=== PATIENT | male | born 1970 | race Caucasian/White ===

== ENCOUNTER 2016-12-16 12:32 | Emergency (ER) | payer OTHER ==
[2016-12-16 13:00] VITALS: BP 130/81
--- NOTE | 2016-12-16 14:59 | UC ---
Respiratory Complaint HPI - HPI Summary HPI Summary: About 9 days ago had "common cold" -- runny nose, ST, congestion, minor cough. Sx seemed to be improving significantly until 2 days ago when pt had markedly worsening cough with constant tickle in his chest. Starting early this morning ( 4 or 5 am) had chills and again late morning until he took a hot shower. Now is very exhausted and having trouble moving around. - History of Current Complaint Chief Complaint: UCRespiratory Stated Complaint: COUGH & TICKLE-CHEST Time Seen by Provider: 12/16/16 14:40 Hx Obtained From: Patient Onset/Duration: Gradual Onset, Lasting Days Timing: Constant Severity Initially: Mild Severity Currently: Moderate Character: Cough: Nonproductive Aggravating Factors: Exertion, Deep Breaths Alleviating Factors: Upright Position Associated Signs And Symptoms: Positive: Chills, Nasal Congestion - Risk Factors Pulmonary Embolism Risk Factors: Negative - Allergies/Home Medications Allergies/Adverse Reactions: Allergies Allergy/AdvReac Type Severity Reaction Status Date / Time Fish Allergy AdvReac Intermediate Vomiting Verified 02/17/16 14:27 and diarrhea ENVIRONMENTAL/SEASONAL Allergy Unknown Uncoded 02/17/16 14:27 HAYFEVER Reaction Details PMH/Surg Hx/FS Hx/Imm Hx Endocrine History Of: Denies: Diabetes, Thyroid Disease Cardiovascular History Of: Reports: Hypertension Denies: Cardiac Disorders Respiratory History Of: Denies: COPD, Asthma - ASTHMA- POSSIBLE - NO MEDICAL DIAGNOSIS GI/ History Of: Reports: Gastroesophageal Reflux Denies: Ulcer Psychological History Of: Reports: Depression - HX OF - Surgical History Surgical History: Yes Surgery Procedure, Year, and Place: as a child multiple (left) eye surgeries with lens removed. bilateral ear surgeries as a child - legally blind left eye ; deviated seprum. wisdom teeth - Family History Known Family History: Positive: Hypertension Family History: NON CONTRIBUTORY - Social History Occupation: Employed Part-time Lives: Alone Alcohol Use: Rare Substance Use Type: Marijuana Substance Use Comment - Amount & Last Used: occasionally Smoking Status (MU): Never Smoked Tobacco Review of Systems Constitutional: Chills, Fatigue Skin: Negative Eyes: Negative ENT: Nasal Discharge - resolving Respiratory: Shortness Of Breath, Cough Cardiovascular: Negative Gastrointestinal: Negative Genitourinary: Negative Motor: Negative Neurovascular: Negative Musculoskeletal: Negative Neurological: Negative Psychological: Negative All Other Systems Reviewed And Are Negative: Yes Physical Exam Triage Information Reviewed: Yes Appearance: Well-Appearing, No Pain Distress, Well-Nourished Vital Signs: Initial Vital Signs Temp 98.4 F 12/16/16 12:57 Pulse 97 12/16/16 12:57 Resp 16 12/16/16 12:57 BP 130/81 12/16/16 12:57 Pulse Ox 98 12/16/16 12:57 Vital Signs Reviewed: Yes Eye Exam: Other - L eye postsurgical appearance Eyes: Positive: Conjunctiva Clear ENT: Positive: Normal ENT inspection, Hearing grossly normal, Pharynx normal, TMs normal Dental Exam: Normal Neck exam: Normal Neck: Positive: Supple, Nontender, No Lymphadenopathy Respiratory Exam: Other - frequent dry cough Respiratory: Positive: Chest non-tender, Lungs clear, Normal breath sounds, No respiratory distress, No accessory muscle use Cardiovascular Exam: Normal Cardiovascular: Positive: RRR, No Murmur Musculoskeletal Exam: Normal Neurological Exam: Normal Psychological Exam: Normal Skin Exam: Other - sweaty UC Diagnostic Evaluation - Laboratory O2 Sat by Pulse Oximetry: 98 Respiratory Course/Dx - Differential Dx/Diagnosis Provider Diagnoses: acute bronchitis. elevated blood pressure due to discomfort Discharge - Discharge Plan Condition: Stable Disposition: HOME Prescriptions: Albuterol HFA INHALER* [Ventolin HFA Inhaler*] 1 - 2 puff INH Q4H PRN #1 mdi PRN Reason: wheeze, cough Benzonatate CAP* [Tessalon CAP*] 100 mg PO TID PRN #30 cap PRN Reason: Cough Guaifenesin-Codeine [Guaiatussin AC] 5 - 10 ml PO BEDTIME #240 ml MDD 40mL predniSONE TAB* [Deltasone TAB*] 50 mg PO DAILY #4 tab Patient Education Materials: Acute Bronchitis (ED) Referrals: Georgiana Godinez MD [Primary Care Provider] - If Needed Additional Instructions: Call or return if you develop increasing fever, shortness of breath, chest pain , bloody sputum, or otherwise worsen. If you have not improved at all after several days, contact your primary care physician or return here.
--- NOTE | 2016-12-16 15:24 | RAD ---
INDICATION: Cough and chills for 9 days. COMPARISON: Comparison is made with a prior study from December 04, 2014. TECHNIQUE: Dual-energy PA and lateral views of the chest were obtained. FINDINGS: The heart is within normal limits in size. Mediastinal and hilar contours appear within normal limits. The lungs are clear. No pleural effusion is present. IMPRESSION: NO EVIDENCE FOR ACTIVE CARDIOPULMONARY DISEASE.
== END 2016-12-16 15:45 | disposition home or self-care (01) ==
LOC: UCEAST 12:32
DX: J20.9 Acute bronchitis, unspecified (principal); I10 Essential (primary) hypertension; K21.9 Gastro-esophageal reflux disease without esophagitis; F32.9 Major depressive disorder, single episode, unspecified
CPT/HCPCS: 71020; 87502; 99212; G0463

== ENCOUNTER 2017-05-24 21:37 | Inpatient (IN) | payer MEDICAID, OTHER ==
[2017-05-25 00:15] LABS: Hematocrit 45 % (42-52); Hemoglobin 15.3 g/dl (14.0-18.0); Mean Corpuscular HGB Conc 34 g/dl (31-36); Mean Corpuscular Hemoglobin 30 pg (27-31); Mean Corpuscular Volume 89 fL (80-94); Mean Platelet Volume 7 um3 (7.4-10.4); Red Blood Count 5.09 10^6/ul (4.0-5.4); Red Cell Distribution Width 13 % (10.5-15); White Blood Count 6.1 10^3/ul (3.5-10.8)
[2017-05-25 00:32] LABS: ALT 22 U/L (7-52); AST 20 U/L (13-39); Acetaminophen < 15 mcg/mL; Albumin 4.2 g/dL (3.2-5.2); Alcohol < 10 mg/dL (<10); Alkaline Phosphatase 78 U/L (34-104); Anion Gap 7 mmol/L (2-11); BUN/Creatinine Ratio 15.5 (8-20); Blood Urea Nitrogen 15 mg/dL (6-24); CO2 Carbon Dioxide 28 mmol/L (22-32); Calcium 9.2 mg/dL (8.6-10.3); Chloride 104 mmol/L (101-111); EGFR African American 106.7 (>60); Globulin 3.1 g/dL (2-4); Glucose 111 mg/dL (70-100); Potassium 3.8 mmol/L (3.5-5.0); Salicylate < 2.50 mg/dL (<30); Sodium 139 mmol/L (133-145); Total Protein 7.3 g/dL (6.4-8.9)
[2017-05-25 02:29] LABS: Urine Bilirubin Negative (Negative); Urine Glucose Negative (Negative); Urine Nitrite Negative (Negative)
[2017-05-25 02:43] LABS: Benzodiazepine Urine Screen None Detected (None Detect)
--- NOTE | 2017-05-25 04:57 | ED ---
Rishi Moore Rebecca, scribed for Harsh Reed MD on 05/24/17 at 2329 . Psychiatric Complaint - HPI Summary HPI Summary: Pt is a 46 y/o M [employer] who presents to ED for depression with SIs. Pt reports that his brother called the police today after be had expressed SIs. Upon triage, he reported to have anthony elizabeth sevilla though he did not state what it was. Pt states he has a PMHx of anxiety and depression, though neither have been diagnosed. - History Of Current Complaint Chief Complaint: EDMentalHealth Time Seen by Provider: 05/24/17 23:20 Hx Obtained From: Patient Onset/Duration: Still Present Character: Depressed Aggravating Factor(s): Nothing Alleviating Factor(s): Nothing Related History: Positive For: Prior Psychiatric Issues - Reports he's experineced anxiety and dpression without a diagnosis Has Suicidal: Reports: Thoughts - Allergies/Home Medications Allergies/Adverse Reactions: Allergies Allergy/AdvReac Type Severity Reaction Status Date / Time Fish Allergy AdvReac Intermediate Vomiting Verified 02/17/16 14:27 and diarrhea ENVIRONMENTAL/SEASONAL Allergy Unknown Uncoded 02/17/16 14:27 HAYFEVER Reaction Details PMH/Surg Hx/FS Hx/Imm Hx Endocrine/Hematology History: Denies: Hx Diabetes, Hx Thyroid Disease Cardiovascular History: Reports: Hx Hypercholesterolemia, Hx Hypertension, Other Cardiovascular Problems/Disorders Respiratory History: Reports: Hx Sleep Apnea, Other Respiratory Problems/ Disorders - SLEEP APNEA Denies: Hx Asthma - ASTHMA- POSSIBLE - NO MEDICAL DIAGNOSIS, Hx Chronic Obstructive Pulmonary Disease (COPD) GI History: Reports: Hx Gastroesophageal Reflux Disease - MILD ACID REFLUX Denies: Hx Ulcer Musculoskeletal History: Reports: Other Musculoskeletal History - chronic foot & ankle pain Sensory History: Reports: Hx Contacts or Glasses, Hx Hearing Aid - 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 bilateral ear surgeries as a child - legally blind left eye ; deviated seprum. wisdom teeth Hx Anesthesia Reactions: No Infectious Disease History: No Infectious Disease History: Denies: Hx Clostridium Difficile, Hx Hepatitis, Hx Human Immunodeficiency Virus (HIV), Hx of Known/Suspected MRSA, Hx Shingles, Hx Tuberculosis, Hx Known/ Suspected VRE, Hx Known/Suspected VRSA, History Other Infectious Disease, Traveled Outside the [place] in Last 30 Days - Family History Known Family History: Positive: Hypertension - Social History Alcohol Use: Rare Substance Use Type: Reports: Marijuana Substance Use Comment - Amount & Last Used: occasionally Hx Tobacco Use: No Smoking Status (MU): Never Smoked Tobacco Review of Systems Negative: Fever Positive: Depressed - with SIs All Other Systems Reviewed And Are Negative: Yes Physical Exam - Summary Physical Exam Summary: General: well-appearing, no pain distress Skin: warm, color reflects adequate perfusion, dry Head: normal Eyes: EOMI, YAMILEX ENT: normal Neck: supple, nontender Respiratory: CTA, breath sounds present Cardiovascular: RRR Abdomen: soft, nontender Bowel: present Musculoskeletal: normal, strength/ROM intact Neurological: normal, sensory/motor intact, A&O x3 Psychological: affect/mood appropriate Triage Information Reviewed: Yes Vital Signs On Initial Exam: Initial Vitals Temp Pulse Resp BP Pulse Ox 98.1 F 103 20 148/98 96 05/24/17 21:50 05/24/17 21:50 05/24/17 21:50 05/24/17 21:50 05/24/17 21:50 Vital Signs Reviewed: Yes Diagnostics - Vital Signs Vital Signs Temp Pulse Resp BP Pulse Ox 05/24/17 21:50 98.1 F 103 20 148/98 96 - Laboratory Lab Results: Lab Results 05/24/17 05/24/17 05/25/17 Range/Units 23:58 23:58 02:16 WBC 6.1 (3.5-10.8) 10^3/ul RBC 5.09 (4.0-5.4) 10^6/ul Hgb 15.3 (14.0-18.0) g/dl Hct 45 (42-52) % MCV 89 (80-94) fL MCH 30 (27-31) pg MCHC 34 (31-36) g/dl RDW 13 (10.5-15) % Plt Count 291 (150-450) 10^3/ul MPV 7 L (7.4-10.4) um3 Neut % (Auto) 59.7 (38-83) % Lymph % (Auto) 28.7 (25-47) % [place] % (Auto) 7.9 (1-9) % Eos % (Auto) 2.6 (0-6) % Baso % (Auto) 1.1 (0-2) % Absolute Neuts (auto) 3.7 (1.5-7.7) 10^3/ul Absolute Lymphs (auto) 1.8 (1.0-4.8) 10^3/ul Absolute Monos (auto) 0.5 (0-0.8) 10^3/ul Absolute Eos (auto) 0.2 (0-0.6) 10^3/ul Absolute Basos (auto) 0.1 (0-0.2) 10^3/ul Absolute Nucleated RBC 0 10^3/ul Nucleated RBC % 0.1 Sodium 139 (133-145) mmol/L Potassium 3.8 (3.5-5.0) mmol/L Chloride 104 (101-111) mmol/L Carbon Dioxide 28 (22-32) mmol/L Anion Gap 7 (2-11) mmol/L BUN 15 (6-24) mg/dL Creatinine 0.97 (0.67-1.17) mg/dL Est GFR ( Amer) 106.7 (>60) Est GFR (Non-Af Amer) 83.0 (>60) BUN/Creatinine Ratio 15.5 (8-20) Glucose 111 H (70-100) mg/dL Calcium 9.2 (8.6-10.3) mg/dL Total Bilirubin 0.40 (0.2-1.0) mg/dL AST 20 (13-39) U/L ALT 22 (7-52) U/L Alkaline Phosphatase 78 (34-104) U/L Total Protein 7.3 (6.4-8.9) g/dL Albumin 4.2 (3.2-5.2) g/dL Globulin 3.1 (2-4) g/dL Albumin/Globulin Ratio 1.4 (1-3) TSH 2.20 (0.34-5.60) mcIU/mL Urine Color Urine Appearance Urine pH (5-9) Ur Specific [place] (1.010-1.030) Urine Protein (Negative) Urine Ketones (Negative) Urine Blood (Negative) Urine Nitrate (Negative) Urine Bilirubin (Negative) Urine Urobilinogen (Negative) Ur Leukocyte Esterase (Negative) Urine Glucose (Negative) Salicylates < 2.50 (<30) mg/dL Urine Opiates Screen None detected (None Detect) Acetaminophen < 15 mcg/mL Ur Barbiturates Screen None detected (None Detect) Ur Phencyclidine Scrn None detected (None Detect) Ur Amphetamines Screen None detected (None Detect) U Benzodiazepines Scrn None detected (None Detect) Urine Cocaine Screen None detected (None Detect) U Cannabinoids Screen Presumptive positive H (None Detect) Serum Alcohol < 10 (<10) mg/dL 05/25/17 Range/Units 02:16 WBC (3.5-10.8) 10^3/ul RBC (4.0-5.4) 10^6/ul Hgb (14.0-18.0) g/dl Hct (42-52) % MCV (80-94) fL MCH (27-31) pg MCHC (31-36) g/dl RDW (10.5-15) % Plt Count (150-450) 10^3/ul MPV (7.4-10.4) um3 Neut % (Auto) (38-83) % Lymph % (Auto) (25-47) % [place] % (Auto) (1-9) % Eos % (Auto) (0-6) % Baso % (Auto) (0-2) % Absolute Neuts (auto) (1.5-7.7) 10^3/ul Absolute Lymphs (auto) (1.0-4.8) 10^3/ul Absolute Monos (auto) (0-0.8) 10^3/ul Absolute Eos (auto) (0-0.6) 10^3/ul Absolute Basos (auto) (0-0.2) 10^3/ul Absolute Nucleated RBC 10^3/ul Nucleated RBC % Sodium (133-145) mmol/L Potassium (3.5-5.0) mmol/L Chloride (101-111) mmol/L Carbon Dioxide (22-32) mmol/L Anion Gap (2-11) mmol/L BUN (6-24) mg/dL Creatinine (0.67-1.17) mg/dL Est GFR ( Amer) (>60) Est GFR (Non-Af Amer) (>60) BUN/Creatinine Ratio (8-20) Glucose (70-100) mg/dL Calcium (8.6-10.3) mg/dL Total Bilirubin (0.2-1.0) mg/dL AST (13-39) U/L ALT (7-52) U/L Alkaline Phosphatase (34-104) U/L Total Protein (6.4-8.9) g/dL Albumin (3.2-5.2) g/dL Globulin (2-4) g/dL Albumin/Globulin Ratio (1-3) TSH (0.34-5.60) mcIU/mL Urine Color Yellow Urine Appearance Cloudy Urine pH 5.0 (5-9) Ur Specific [place] 1.027 (1.010-1.030) Urine Protein Negative (Negative) Urine Ketones Negative (Negative) Urine Blood Negative (Negative) Urine Nitrate Negative (Negative) Urine Bilirubin Negative (Negative) Urine Urobilinogen Negative (Negative) Ur Leukocyte Esterase Negative (Negative) Urine Glucose Negative (Negative) Salicylates (<30) mg/dL Urine Opiates Screen (None Detect) Acetaminophen mcg/mL Ur Barbiturates Screen (None Detect) Ur Phencyclidine Scrn (None Detect) Ur Amphetamines Screen (None Detect) U Benzodiazepines Scrn (None Detect) Urine Cocaine Screen (None Detect) U Cannabinoids Screen (None Detect) Serum Alcohol (<10) mg/dL Result Diagrams: 05/24/17 23:58 05/24/17 23:58 Lab Statement: Any lab studies that have been ordered have been reviewed, and results considered in the medical decision making process. Course/Dx - Course Assessment/Plan: Medically cleared for MHE at 2325. Patient medications reviewed. BP noted and advised to f/u with PCP. ADMIT MHU - Differential Dx/Clinical Impression Provider Diagnosis: Mental health problem Discharge - Discharge Plan Condition: Stable Disposition: [facility]CHIATRIC FACILITY-[facility] [place] The documentation as recorded by the Rishi paulson Rebecca accurately reflects the service I personally performed and the decisions made by me, Harsh Reed MD.
[2017-05-25] MEDS ORDERED: Acetaminophen TAB* 325 MG PO PRN (10:18)
[2017-05-25] MEDS ORDERED: Al Hydrox/Mg Hydrox/Simet LIQ* 30 ML UDC PO PRN (10:18)
[2017-05-25] MEDS ORDERED: Albuterol HFA INHALER* 8 gm MDI INH PRN (10:20)
[2017-05-25] MEDS ORDERED: Ibuprofen TAB* 600 MG PO PRN (10:20)
--- NOTE | 2017-05-25 10:57 | CONSULT ---
Consult Consult: Mr. Baugh presented on a previous shift with depression and a plan to jump in the [place]. He was medically cleared and had a MHE. They offered him a voluntary admission and he agreed. He will be admitted in stable condition with a diagnosis of depression with suicidal ideation.
[2017-05-25 15:33] LABS: Cholesterol 212 mg/dL; HDL Cholesterol 42.6 mg/dL; LDL Cholesterol 135 mg/dL; Triglycerides 170 mg/dL
[2017-05-25] MEDS ORDERED: Atorvastatin* 10 MG TAB PO SCH (17:00)
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
[2017-05-26] MEDS ORDERED: Omeprazole CAP* 20 MG PO SCH (06:00)
[2017-05-26 07:41] VITALS: BP 146/80
--- NOTE | 2017-05-27 01:36 | DS ---
CC: [facility]; Dr. Georgiana Godinez at [facility]. * DATE OF ADMISSION: 05/25/17 DATE OF DISCHARGE: 05/26/17 SUPERVISING PSYCHIATRIST: Burke Crystal MD * (DICTATED BY DAVID ROLLINS NP) DISCHARGE DIAGNOSIS: Adjustment disorder with disturbance of contact, gastroesophageal reflux disease, hypercholesterolemia and obesity. CONDITION AT THE TIME OF DISCHARGE: Improved. The patient denies suicidal ideation. He denies depressed mood. He reports that he is primarily frustrated in trying to identify where to live. He states he does not have an income other than his mother who has been helping him financially since February. Tj states that he was working prior to this at various jobs, but he had various reasons for not being able to continue employment. He reports sleeping well other than waking up frequently due to environmental factors in the hospital. He is agreeable to referral to outpatient mental health counseling at [facility]. He notifies his mother who has whereabouts to his car and she can pick him up. His mother's name is Talon, her phone number is [phone]. The patient denies SI, SIB urges. He denies HI or . MENTAL STATUS EXAM: The patient is a moderately-framed white male. He is obese and appears stated age. He has thin hair with a short buzz cut and small amount of facial hair. He is cooperative with interview and answers questions fully. He is overinclusive. He is alert and oriented x3. His concentration is good. His memory is 3/3. His mood is "lot of deep thought." Eye contact is good, intense at times. Affect is constricted. Speech is soft, articulate and spontaneous. Thought process is circumstantial in regards to tenuous housing. Thought content negative for SI, HI or . Denies AV hallucinations. He denies phobias, rituals, delusions or depersonalization. His insight is fair. His judgement is fair. His fund of knowledge is adequate. DISCHARGE INSTRUCTIONS: A. Instructions were given to the patient to by nursing staff. He was instructed to continue outpatient medications, specifically omeprazole 20 mg p.o. daily and Lipitor 10 mg p.o. daily. He is referred to follow up with his primary care provider Dr. Godinez at [facility]. B. Diet: Regular, suggested to have low cholesterol diet. C. Activities: Ambulation as tolerated. Tobacco cessation is not applicable. Laboratory data, lipid profile and hemoglobin A1c were added to the blood work done in the emergency department. There are no pending labs or diagnostic studies at the time of discharge. D. Followup Care: He will follow up with an intake at [facility] on Monday05/31/17 at 10:30 a.m. and instructed to follow up with his primary care provider as needed. HOSPITAL COURSE: A. Reason for admission: The patient was brought to the emergency department by police after suicidal ideation and a plan that was interrupted by phone call to police. B. Psychiatric treatment rendered: The patient agreed to admission to adult behavioral services unit on voluntary status. He stated preference to remain less than 48 hours. Code status was full. He was placed on 15 minutes checks for safety. He is monitored closely around female staff and peers due to history of sex crimes and is a level 3 sex offender. He was encouraged to participate in milieu as appropriate and individual sessions with staff and psychoeducational groups. MMPI was not obtained due to brief admission. The patient denied need for hospitalization throughout the weekend, was agreeable to discharge planning. Laboratory data was reviewed and due to hypercholesterolemia, lipid panel was added. These levels are high and he is aware. The patient notified his mother to pick him up for discharge. DAVID ROLLINS NP [id number]/CPS #: [id number] [place]
== END 2017-05-26 12:15 | disposition home or self-care (01) | DRG 755 ==
LOC: ED 21:37 → BSU 05-25 13:48
PROVIDERS: ADMIT Psychiatry & Neurology Psychiatry; ATTEND Psychiatry & Neurology Psychiatry
DX: F43.24 Adjustment disorder with disturbance of conduct (principal); R45.851 Suicidal ideations; I10 Essential (primary) hypertension; F41.9 Anxiety disorder, unspecified; F32.9 Major depressive disorder, single episode, unspecified; J30.2 Other seasonal allergic rhinitis; E78.00 Pure hypercholesterolemia, unspecified; G47.30 Sleep apnea, unspecified; K21.9 Gastro-esophageal reflux disease without esophagitis; G89.29 Other chronic pain; M25.579 Pain in unspecified ankle and joints of unspecified foot; H91.93 Unspecified hearing loss, bilateral; H54.62 Unqualified visual loss, left eye, normal vision right eye; F12.90 Cannabis use, unspecified, uncomplicated; K58.9 Irritable bowel syndrome, unspecified; E66.9 Obesity, unspecified; Z62.810 Personal history of physical and sexual abuse in childhood; Z98.42 Cataract extraction status, left eye; Z98.41 Cataract extraction status, right eye; Z91.013 Allergy to seafood; Z72.89 Other problems related to lifestyle; Z68.37 Body mass index [BMI] 37.0-37.9, adult; Z97.4 Presence of external hearing-aid; Z82.49 Family history of ischemic heart disease and other diseases of the circulatory system; Z56.0 Unemployment, unspecified; F65.4 Pedophilia
CPT/HCPCS: 36415; 80053; 80061; 80307; 80320; 80329; 81003; 84443; 85025; 99222; 99238; A9270-GY; G0480

== ENCOUNTER 2018-04-07 18:51 | Emergency (ER) | payer MEDICAID ==
[2018-04-07 19:09] VITALS: BP 133/97
--- NOTE | 2018-04-07 19:41 | UC ---
General HPI - HPI Summary HPI Summary: States he was stung by a caterpillar about an hour ago and the skin on the site has become very itchy, burning and red. Denies fever, radiation of pain. States he has had allergic reactions to insect bites before. Denies dysphagia, shortness of breath, wheezing. - History of Current Complaint Chief Complaint: UCSkin Stated Complaint: STUNG BY BUG Time Seen by Provider: 04/07/18 19:25 Hx Obtained From: Patient Onset/Duration: Sudden Onset, Lasting Hours Onset Severity: Mild Current Severity: Mild Pain Intensity: 0 - Allergy/Home Medications Allergies/Adverse Reactions: Allergies Allergy/AdvReac Type Severity Reaction Status Date / Time MS Fish Allergy AdvReac Intermediate Vomiting Verified 02/17/16 14:27 [Fish Allergy] and diarrhea ENVIRONMENTAL/SEASONAL Allergy Unknown Uncoded 02/17/16 14:27 HAYFEVER Reaction Details Home Medications: Home Medications Magnesium Hydroxide [Milk of Magnesia] 04/07/18 [History] PMH/Surg Hx/FS Hx/Imm Hx Previously Healthy: Yes Endocrine History: Dyslipidemia GI/ History: Gastroesophageal Reflux - Surgical History Surgical History: Yes Surgery Procedure, Year, and Place: as a child multiple (left) eye surgeries with lens removed. bilateral ear surgeries as a child - legally blind left eye ; deviated seprum. wisdom teeth - Family History Known Family History: Positive: Hypertension, Diabetes Family History: NON CONTRIBUTORY - Social History Alcohol Use: Occasionally Substance Use Type: Marijuana Substance Use Comment - Amount & Last Used: occasionally Smoking Status (MU): Never Smoked Tobacco Amount Used/How Often: patient uses no tobbaco or nicotine products at all. No use >20 yrs Have You Smoked in the Last Year: No - Immunization History Most Recent Influenza Vaccination: apr 2017 Most Recent Pneumonia Vaccination: never Review of Systems Constitutional: Negative Skin: Rash All Other Systems Reviewed And Are Negative: Yes Physical Exam Triage Information Reviewed: Yes Appearance: Well-Appearing, No Pain Distress, Obese Vital Signs: Initial Vital Signs Temp 97.7 F 04/07/18 19:02 Pulse 71 04/07/18 19:02 Resp 16 04/07/18 19:02 BP 133/97 04/07/18 19:02 Pulse Ox 98 04/07/18 19:02 Vital Signs Reviewed: Yes Eye Exam: Normal Eyes: Positive: Conjunctiva Clear ENT: Positive: Hearing grossly normal, Pharynx normal, Uvula midline Neck: Positive: Supple, Nontender, No Lymphadenopathy Respiratory: Positive: Chest non-tender, Lungs clear, Normal breath sounds, No respiratory distress Cardiovascular: Positive: RRR, No Murmur, Pulses Normal, Brisk Capillary Refill Skin Exam: Other - area of erythema with soft tissue edema 3cm in diameter, no discharge or ulceration, mid third dorsal aspect of right forearm Course/Dx - Course Course Of Treatment: patient had insect bite, to start hydrocort cream and atarax as prescribed - Differential Dx - Multi-Symptom Provider Diagnoses: allergic reaction to insect bite Discharge - Sign-Out/Discharge Documenting (check all that apply): Patient Departure - Discharge Plan Condition: Good Disposition: HOME Prescriptions: Hydrocortisone 2.5% CREAM(NF) 1 applic TOPICAL BID PRN 7 Days #1 tube PRN Reason: Rash hydrOXYzine HCL TAB* [Atarax 10 MG TAB*] 10 mg PO TID PRN #10 tab PRN Reason: Pruritis Patient Education Materials: Insect Bite or Sting (ED), Hydroxyzine (By mouth) , Hydrocortisone (On the skin) Referrals: Georgiana Godinez MD [Primary Care Provider] - - Billing Disposition and Condition Condition: GOOD Disposition: Home
[2018-04-07] MEDS ORDERED: hydrOXYzine HCL TAB* 25 MG PO ONE (19:43)
== END 2018-04-07 19:45 | disposition home or self-care (01) ==
LOC: UCEAST 18:51
DX: T63.481A Toxic effect of venom of other arthropod, accidental (unintentional), initial encounter (principal); Y92.9 Unspecified place or not applicable
CPT/HCPCS: 99212; A9270-GY; G0463

== ENCOUNTER 2019-04-24 01:55 | Emergency (ER) | payer OTHER ==
[2019-04-24] MEDS ORDERED: Bupivacaine 0.25% EPI 200,000* 30 ML SDV INJ ONE (02:15)
[2019-04-24] MEDS ORDERED: Lidocaine 1% INJ* 10 MG/ML 30 ML SDV INJ ONE (02:15)
--- NOTE | 2019-04-24 02:15 | ED ---
Throat Pain/Nasal Congestion - HPI Summary HPI Summary: This patient is a 48 year old M presenting to ED with a chief complaint of left upper and lower dental pain for half an hour. Patient states the pain began in the upper molar and has spread to his lower mouth as well. Patient had fillings in the teeth months ago, but the top fillings fell out. He did not have pain at that time when the fillings fell out. However, tonight, the pain hit hard. after eating. Patient took [id number] Ibuprofen and [id number] Tylenol, which did not help. Patient used Orajel also to numb the pain, but it did not help either. Patient denies fevers, chills. The patient rates the pain 6/10 in severity. Pain worse w opening mouth, - History of Current Complaint Chief Complaint: EDDentalPain Time Seen by Provider: 04/24/19 02:08 Hx Obtained From: Patient Onset/Duration: Sudden Onset, Lasting Minutes - Since 30 minutes ago, Still Present Severity: Moderate - Allergies/Home Medications Allergies/Adverse Reactions: Allergies Allergy/AdvReac Type Severity Reaction Status Date / Time Fish Containing Products Allergy Vomiting Verified 04/24/19 01:59 ENVIRONMENTAL/SEASONAL Allergy Unknown Uncoded 04/24/19 01:59 HAYFEVER Reaction Details PMH/Surg Hx/FS Hx/Imm Hx Endocrine/Hematology History: Denies: Hx Diabetes - testing being done, Hx Thyroid Disease Cardiovascular History: Reports: Hx Hypercholesterolemia, Hx Hypertension - no treatment, Other Cardiovascular Problems/Disorders Respiratory History: Reports: Hx Sleep Apnea, Other Respiratory Problems/ Disorders - SLEEP APNEA Denies: Hx Asthma - ASTHMA- POSSIBLE - NO MEDICAL DIAGNOSIS, Hx Chronic Obstructive Pulmonary Disease (COPD) GI History: Reports: Hx Gastroesophageal Reflux Disease - MILD ACID REFLUX Denies: Hx Ulcer Musculoskeletal History: Reports: Other Musculoskeletal History - chronic foot & ankle pain Sensory History: Reports: Hx Contacts or Glasses - reading only, Hx Legally Blind - left eye only, Hx Vision Problem, Hx Hearing Problem - poor hearing, especially left ear, Other Sensory Impairments - (left) eye lense removed Denies: Hx Hearing Aid Opthamlomology History: Reports: Hx Contacts or Glasses - reading only, Hx Legally Blind - left eye only, Hx Vision Problem, Other Sensory Impairments - ( left) eye lense removed Neurological History: Reports: Hx Headaches - SHORT LIVED, Other Neuro Impairments/Disorders - HX OF DIZZINESS - SAW PHYSICIAN-MAY BE R/T STRESS Psychiatric History: Reports: Hx Anxiety, Hx Depression - HX OF, Hx Suicide Attempt, Hx Substance Abuse - Surgical History Surgery Procedure, Year, and Place: as a child multiple (left) eye surgeries with lens removed. bilateral ear surgeries as a child - legally blind left eye ; deviated seprum. wisdom teeth Hx Anesthesia Reactions: No Infectious Disease History: No Infectious Disease History: Denies: Hx Clostridium Difficile, Hx Hepatitis, Hx Human Immunodeficiency Virus (HIV), Hx of Known/Suspected MRSA, Hx Shingles, Hx Tuberculosis, Hx Known/ Suspected VRE, Hx Known/Suspected VRSA, History Other Infectious Disease, Traveled Outside the [place] in Last 30 Days - Family History Known Family History: Positive: Hypertension, Diabetes Family History: NON CONTRIBUTORY - Social History Alcohol Use: Occasionally Hx Substance Use: Yes Substance Use Type: Reports: Marijuana Substance Use Comment - Amount & Last Used: occasionally Hx Tobacco Use: No Smoking Status (MU): Never Smoked Tobacco Amount Used/How Often: patient uses no tobbaco or nicotine products at all. No use >20 yrs Have You Smoked in the Last Year: No Review of Systems Negative: Fever, Chills Positive: Dental Pain - Left upper and lower teeth All Other Systems Reviewed And Are Negative: Yes Physical Exam - Summary Physical Exam Summary: General: Well appearing, no distress HEENT: Multiple dental caries, Bottom three molars on left have fillings, L upper 3rd molar has filling, L upper 2nd molar broken w exposed root. No trismus. Cardiovascular: Skin is well perfused Pulmonary: No respiratory distress, no tachypnea Abdomen: Non-distended Skin: Warm, pink, dry MSK: No edema Psych: Normal affect Neuro: A&Ox3 Triage Information Reviewed: Yes Vital Signs On Initial Exam: Initial Vitals Temp Pulse Resp BP Pulse Ox 98.7 F 98 18 133/105 96 04/24/19 01:56 04/24/19 01:56 04/24/19 01:56 04/24/19 01:56 04/24/19 01:56 Vital Signs Reviewed: Yes Procedures - Procedure Summary Procedure Summary: Posterior superior alveolar block performed with 2 cc of 1% lidocaine, and 2 cc of 0.25% bupivacaine with epinephrine. Patient tolerated the procedure well Diagnostics - Vital Signs Vital Signs Temp Pulse Resp BP Pulse Ox 04/24/19 01:56 98.7 F 98 18 133/105 96 - Laboratory Lab Statement: Any lab studies that have been ordered have been reviewed, and results considered in the medical decision making process. EENT Course/Dx - Course Course Of Treatment: 48-year-old male with dental pain and dental caries. Physical exam with poor dentition, exposed root of the left upper second molar. No obvious abscesses. Will perform a dental block, given penicillin and pain control needs follow-up with dentist - Diagnoses Provider Diagnoses: Toothache Discharge ED - Sign-Out/Discharge Documenting (check all that apply): Patient Departure - Discharge Patient Received Moderate/Deep Sedation with Procedure: No - Discharge Plan Condition: Good Disposition: HOME Prescriptions: Penicillin VK 500 MG TAB(NF) [Penicillin VK 500 mg Tab] 500 mg PO QID 7 Days # 28 tab traMADol TAB* [Ultram*] 25 mg PO Q8H PRN 2 Days #6 tab MDD 3 PRN Reason: Pain - Severe Patient Education Materials: Toothache (ED) Referrals: Georgiana Godinez MD [Primary Care Provider] - Additional Instructions: You were seen in the emergency department for dental pain. Please follow up with dentist as soon as possible. Return for worsening pain, fevers, trouble opening your mouth or eating. - Billing Disposition and Condition Condition: GOOD Disposition: Home - Attestation Statements Document Initiated by Goyo: Yes Documenting Scribe: Evin Lewis Provider For Whom Goyo is Documenting (Include Credential): Aguila Patton MD Scribe Attestation: I, Evin Lewis, scribed for Aguila Patton MD on 04/24/19 at 0255. Scribe Documentation Reviewed: Yes Provider Attestation: The documentation as recorded by the Evin paulson accurately reflects the service I personally performed and the decisions made by me, Aguila Patton MD Status of Scribe Document: Viewed
[2019-04-24] MEDS ORDERED: Penicillin VK 500 MG TAB(NF) PO ONE (02:45)
[2019-04-24] MEDS ORDERED: traMADol TAB* 50 MG PO ONE (02:47)
[2019-04-24] MEDS ORDERED: Penicillin VK TAB* 250 MG PO ONE (03:00)
[2019-04-24 03:05] VITALS: BP 133/81
== END 2019-04-24 03:05 | disposition home or self-care (01) ==
LOC: ED 01:55
DX: K08.89 Other specified disorders of teeth and supporting structures (principal); K03.81 Cracked tooth; K02.9 Dental caries, unspecified; I10 Essential (primary) hypertension
CPT/HCPCS: 99281; A9270-GY

== ENCOUNTER 2019-05-01 16:17 | Emergency (ER) | payer SELFPAY ==
[2019-05-01] MEDS ORDERED: Ibuprofen TAB* 600 MG PO ONE (17:33)
--- NOTE | 2019-05-01 18:13 | UC ---
Shoulder Pain HPI - HPI Summary HPI Summary: 48 y/o male presents to the urgent care c/o Rt shoulder pain on and off for the past year. However, for the past 3 days RT shoulder pain worsen s/p do some repetitive work. This morning he couldn't raise his arm due to pain. Pain is 7/ 10, sharp radiating to the Rt side of neck. He also has pain in his left upper jaw around a tooth he has caries and his Dentist Rx PCN last week. He has taken Ibuprofen PO to alleviate symptoms w/o any improvement. He thinks he probably has a strain, but wants to make sure there is nothing in his shoulder. No previous injury or numbness or tingling sensation over the Rt arms, fever, cough , trismus, SOB, dizziness, chest pain, abdominal pain, N/V/d. - History of Current Complaint Chief Complaint: UCUpperExtremity Stated Complaint: SHOULDER STRAIN Time Seen by Provider: 05/01/19 18:10 Hx Obtained From: Patient Onset/Duration: Gradual Onset, Lasting Days - 3 days, Still Present Timing: Constant Severity Initially: Mild Severity Currently: Moderate Location Of Pain: Is Discrete @ Pain Intensity: 7 Pain Scale Used: 0-10 Numeric Character: Sharp - RT shoudler pain, Spasmodic Aggravating Factor(s): Lifting, Abduction Alleviating Factor(s): Rest, OTC Meds Associated Signs And Symptoms: Positive: Negative. Negative: Swelling, Bruising , Weakness, Numbness/Tingling Related History: Dominant Hand Right - Risk Factors Non-Orthopedic Risk Factor: Negative DVT Risk Factors: Negative Septic Arthritis Risk Factor: Negative - Allergies/Home Medications Allergies/Adverse Reactions: Allergies Allergy/AdvReac Type Severity Reaction Status Date / Time Fish Containing Products Allergy Vomiting Verified 05/01/19 16:32 ENVIRONMENTAL/SEASONAL Allergy Unknown Uncoded 05/01/19 16:32 HAYFEVER Reaction Details PMH/Surg Hx/FS Hx/Imm Hx Previously Healthy: Yes Endocrine History: Dyslipidemia - Surgical History Surgical History: Yes Surgery Procedure, Year, and Place: as a child multiple (left) eye surgeries with lens removed. bilateral ear surgeries as a child - legally blind left eye ; deviated seprum. wisdom teeth - Family History Known Family History: Positive: Hypertension, Diabetes - Social History Occupation: Employed Full-time Lives: With Family Alcohol Use: Occasionally Substance Use Type: Marijuana Substance Use Comment - Amount & Last Used: occasionally Smoking Status (MU): Never Smoked Tobacco Amount Used/How Often: patient uses no tobbaco or nicotine products at all. No use >20 yrs Have You Smoked in the Last Year: No - Immunization History Most Recent Influenza Vaccination: apr 2017 Most Recent Pneumonia Vaccination: never Review of Systems All Other Systems Reviewed And Are Negative: Yes Constitutional: Positive: Negative Skin: Positive: Negative Eyes: Positive: Negative ENT: Positive: Dental Pain - left upper tooth pain Respiratory: Positive: Negative Cardiovascular: Positive: Negative Gastrointestinal: Positive: Negative Genitourinary: Positive: Negative Motor: Positive: Negative Neurovascular: Positive: Negative Musculoskeletal: Positive: Decreased ROM - RT shoulder pain, Other: - RT shoudler pain Neurological: Positive: Negative Psychological: Positive: Negative Is Patient Immunocompromised?: No Physical Exam - Summary Physical Exam Summary: Vital Signs Reviewed: Yes GENERAL: Well-Appearing, No Pain Distress, Well-Nourished -obese male w/o any apparent pain distress Eyes: Positive: Conjunctiva Clear - PERRL,EOMI ENT: Positive: Normal ENT inspection, Hearing grossly normal, Pharyngeal erythema - mild, Nasal drainage - clear, Uvula midline Dental: Positive: Gross Decay/Caries on molars #14 w/o gingival swelling and erythema, tender to percussion. NO anterior Cervical Lymphadenopathy. Neck: Positive: Supple, Nontender, No Lymphadenopathy Respiratory: Positive: Chest non-tender, Lungs clear, Normal breath sounds, No respiratory distress Cardiovascular: Positive: RRR, No Murmur, Pulses Normal, Brisk Capillary Refill Abdomen Description: Positive: Nontender, No Organomegaly, Soft. Negative: CVA Tenderness (R), CVA Tenderness (L) Bowel Sounds: Positive: Present Musculoskeletal: RT shoulder: The R shoulder is without obvious asymmetry or deformity when compared to the L shoulder. No bruising, no crepitus. No bony deformity or prominence of humeral head. No erythema, warmth. No Point Tenderness to palpation over the clavicle, or scapula. positive tenderness over Acromioclavicular joint and humeral head with mild swelling, NT to palpation of the bicipital groove . NT to palpation of the muscles of the sternocleidomastoid, pectoralis, biceps/triceps, deltoid, trapezius, . Limited ROM due to pain especially in adduction and abduction.on both passive and active , internal/external rotation, flexion/extension. "empty can and drop arm test unable to perform due to pain. No axillary tenderness or lymphadenopathy. Normal sensation over the deltoid and fingers. Distal motor and neurovascular status is intact. Neurological Exam: Normal Psychological Exam: Normal Skin Exam: Normal Triage Information Reviewed: Yes Vital Signs: Initial Vital Signs Temp 97.0 F 05/01/19 16:24 Pulse 72 05/01/19 16:24 Resp 18 05/01/19 16:24 BP 155/102 05/01/19 16:24 Pulse Ox 99 05/01/19 16:24 Shoulder Course/Dx - Course Course Of Treatment: 48 y/o male presents to the urgent care c/o Rt shoulder pain on and off for the past year. However, for the past 3 days RT shoulder pain worsen s/p do some repetitive work. This morning he couldn't raise his arm due to pain. Pain is 7/ 10, sharp radiating to the Rt side of neck. He also has pain in his left upper jaw around a tooth he has caries and his Dentist Rx PCN last week. He has taken Ibuprofen PO to alleviate symptoms w/o any improvement. Last dose taken was last night. He thinks he probably has a strain, but wants to make sure there is nothing in his shoulder. No previous injury or numbness or tingling sensation over the Rt arms, fever, cough, trismus, SOB, dizziness, chest pain, abdominal pain, N/V/d. Hx obtained. RT shoulder X-ray ordered: Impression: negative for acute osseous injury as per radiologist. Pt's Rx Naproxen PO and Lidocaine viscous Lidocaine to alleviate symptoms of dental pain and RT shoulder tendonitis. Shoulder immobilized with a shoulder sling for 3-4 days. Advised to f/u with PT referral for further evaluation and Orthopedic referral from Sports Medicine if not improvement of symptoms.Also advised to f/y w/ his Dentist for further management in his molar. Pt's BP is elevated today advised to decrease salt in diet, monitor BP and f/u with PCP for further management. D/c instructions explained. Pt understood and agreed w/ plan of care. - Differential Dx/Diagnosis Differential Diagnosis/HQI/PQRI: Arthritis, Contusion, Dislocation, Fracture ( Closed), Rotator Cuff Injury, Sprain, Strain, Tendonitis Provider Diagnosis: Right shoulder tendonitis, Pain due to dental caries, Elevated BP without diagnosis of hypertension Discharge ED - Sign-Out/Discharge Documenting (check all that apply): Patient Departure - D/C home All imaging exams completed and their final reports reviewed: Yes - Discharge Plan Condition: Stable Disposition: HOME Prescriptions: RX: Lidocaine 2% VISCOUS* [Xylocaine 2% Viscous*] 15 ml SWISH SPIT Q6H PRN #1 btl PRN Reason: dental pain RX: Naproxen TAB* [Naprosyn 250 mg TAB*] 250 mg PO Q8H PRN #30 tab PRN Reason: moderate pain Patient Education Materials: Low-Sodium Diet (ED), Tendinitis (ED) Referrals: Georgiana Godinez MD [Primary Care Provider] - 3 Days [facility] [Provider Group] - 3 Days Additional Instructions: 1-Please take Naproxen PO after meals as directed to alleviate pain and swelling. Take viscous Lidocaine as directed to alleviate dental pain. 2-Please apply ice, keep your shoulder immobilized sling with the shoulder sling for 3-4 days and then resume movement slowly 3- Please f/u with Orthopedic Sport Medicine or your PCP in 3 days for further evaluation and treatment. 4- Please finish your Penicillin PO and f/u w/ your Dentist as soon as possible to further management. 5-Your BP is elevated today. Please take your BP medications and decrease salt in your diet, monitor BP and if it continues to be elevated please f/u with your PCP for further management. If you develop chest pain, dizziness, visual disturbances, SOB, or severe BEASLEY please go immediately to the ER for further management - Billing Disposition and Condition Condition: STABLE Disposition: Home
[2019-05-01 18:42] VITALS: BP 137/99
== END 2019-05-01 18:43 | disposition home or self-care (01) ==
LOC: UCEAST 16:17
DX: M75.91 Shoulder lesion, unspecified, right shoulder (principal); K02.9 Dental caries, unspecified; R03.0 Elevated blood-pressure reading, without diagnosis of hypertension
CPT/HCPCS: 99213; A9270-GY; G0463